=== PATIENT | female | born 1970 | race Caucasian/White ===

== ENCOUNTER 2024-10-11 08:23 | Outpatient (CLI) | payer BC | END 2024-10-11 08:24 | disposition home or self-care (01) | LOC: BICMAMMO 08:23 | PROVIDERS: ATTEND Obstetrics & Gynecology | DX: N63.10 Unspecified lump in the right breast, unspecified quadrant (principal); R92.1 Mammographic calcification found on diagnostic imaging of breast | CPT/HCPCS: 77066; G0279 ==

== ENCOUNTER 2025-08-23 13:40 | Emergency (ER) | payer OTHER ==
[2025-08-23] MEDS ORDERED: HYDROcodone/Acetaminophen 10/325 mg Tablet ONE (14:07)
[2025-08-23 14:27] LABS: #Basophils 0.03 10x3/uL (0.0-0.2); #Eosinophils 0.11 10x3/uL (0.0-0.7); #Monocytes 0.45 10x3/uL (0.11-0.59); #Neutrophils 5.33 10x3/uL (1.40-6.50); %Basophils 0.4 % (0.0-1.0); %Eosinophils 1.5 % (0.0-10.0); %Lymphocytes 17.3 % (21.0-51.0); %Monocytes 6.3 % (0.0-10.0); %Neutrophils 74.2 % (42.0-75.0); Hematocrit 40.0 % (36.0-47.0); Hemoglobin 13.6 g/dL (12.0-16.0); Mean Corpuscular Hemoglobin 30.3 pg (27.0-31.0); Mean Corpuscular Volume 89.1 fL (78.0-98.0); Platelet Count 175 10x3/uL (130-400); Red Blood Cell (RBC) Count 4.49 mill/uL (4.20-5.40); White Blood Cell (WBC) Count 7.18 10x3/uL (4.8-10.8)
[2025-08-23 14:33] LABS: CAUTI Indications for Culture Pelvic or flank pain; Glucose, Urine (Dipstick) Normal (Negative); Leukocyte 250 Leu/uL (Negative); Protein, Urine (Dipstick) Negative (Neg-Trace); RBC/HPF None Seen HPF (0-3); Specific Gravity, Urine 1.011 (1.002-1.036)
[2025-08-23 14:36] LABS: Bacteria/HPF 1+ HPF (None Seen)
[2025-08-23 14:37] LABS: Urine Culture Reflex Yes Yes
[2025-08-23 14:42] LABS: Lipase 85.0 U/L (8-78)
[2025-08-23 14:44] LABS: ALT (SGPT) 55 U/L (Less than 34); AST (SGOT) 73 U/L (11-34); Albumin 3.7 g/dL (3.1-4.5); Alkaline Phosphatase 70 U/L (40-110); Anion Gap 15 mmol/L (10-20); BUN (Urea Nitrogen) 14 mg/dL (9.8-20.1); Bilirubin, Total 0.7 mg/dL (0.3-1.2); CRP, High Sensitivity at Bryan 1.45 mg/dL (< or = 0.5); Calc. Creatinine Clearance 0 mL/min (70-130); Calcium 9.3 mg/dL (7.8-10.44); Carbon Dioxide 23 mmol/L (22-29); Chloride 106 mmol/L (98-107); Globulin 4.0 g/dL (2.4-3.5); Glucose 162 mg/dL (70-105); Potassium 3.6 mmol/L (3.5-5.1); Sodium 140 mmol/L (136-145)
[2025-08-23] MEDS ORDERED: Lidocaine 1% (PF) 30 ML VIAL ONE (15:08)
[2025-08-23] MEDS ORDERED: Sulfameth/Trimethoprim DS 800-160mg TAB ONE (15:32)
[2025-08-23] MEDS ORDERED: Cephalexin 250 MG CAP ONE ×2 (15:32→15:33)
== END 2025-08-23 15:44 | disposition home or self-care (01) ==
LOC: ERS 13:40
DX: L02.211 Cutaneous abscess of abdominal wall (principal); I10 Essential (primary) hypertension
CPT/HCPCS: 10060; 74177; 80053; 81001; 83690; 85025; 86141; 87086; J2003